=== PATIENT | female | born 1990 | race American Indian/Alaskan Native ===

== ENCOUNTER 2021-10-05 17:32 | Emergency (ER) | payer BC, MEDICAID, OTHER ==
[~2021-10-05] VITALS: Ht 170.2 cm; Wt 90.9 kg
[~2021-10-05 17:32] MED LIST: DIAZ5TAB PO; NO HOME MEDS
[2021-10-05 18:03] VITALS: BP 119/85
[2021-10-05] MEDS ORDERED: diazepam inj 5 MG/ML inj. IM ONE (18:35)
== END 2021-10-05 21:11 | disposition home or self-care (01) ==
LOC: ER 17:33
DX: M54.50 Low back pain, unspecified (principal); R53.1 Weakness; R20.0 Anesthesia of skin; G89.29 Other chronic pain; Z56.0 Unemployment, unspecified; Z88.8 Allergy status to other drugs, medicaments and biological substances; Z79.899 Other long term (current) drug therapy
CPT/HCPCS: 72148; 96372; 99284; J3360; 99283

== ENCOUNTER 2024-05-22 01:20 | Inpatient (IN) | payer BC, OTHER ==
[2024-05-22] VITALS (16 sets, daily range): BP systolic 125–138; BP diastolic 74–92; PULSE 51–82; RESP 12–16; TEMP 97–97.8; O2SAT 93–100
[~2024-05-22] VITALS: Ht 170.2 cm; Wt 68.0 kg
[2024-05-22] MEDS: acetaminophen 1,000mg/100ml IV 100 ML IV ONE ×2 (02:34→22:16)
[2024-05-22] MEDS: normal saline 1000ML IV soln IVB ONE (02:34)
[2024-05-22] MEDS: ketorolac trometh. 30mg/ml inj. IV ONE (02:34)
[2024-05-22] MEDS: ondansetron/PF 4mg/2ml inj IV ONE (02:34)
[2024-05-22 03:18] LABS: BASOPHILS % (AUTO) 0.4 % (0-1); EOSINOPHILS # (AUTO) 0.1 X10'3 (0-0.9); EOSINOPHILS % (AUTO) 1.1 % (0-6); HEMATOCRIT 35.8 % (35.0-45.0); LYMPHOCYTES # (AUTO) 1.7 X10'3 (1.1-4.8); LYMPHOCYTES % (AUTO) 16.1 % (21-51); MEAN CORPUSCULAR HEMOGLOBIN 33.5 PG (27.0-31.0); MEAN CORPUSCULAR HGB CONC 33.6 g/dL (33.0-36.5); MEAN CORPUSCULAR VOLUME 99.6 FL (78-98); MEAN PLATELET VOLUME 8.4 FL (7.4-10.4); MONOCYTES # (AUTO) 0.5 X10'3 (0-0.9); MONOCYTES % (AUTO) 4.8 % (2-12); NEUTROPHILS # (AUTO) 8.3 X10'3 (1.8-7.7); NEUTROPHILS % (AUTO) 77.6 % (42-75); PLATELET COUNT 176 X10'3 (140-440); RED BLOOD COUNT 3.59 X10'6 (4.20-5.60); RED CELL DISTRIBUTION WIDTH 13.1 % (11.5-14.5); WHITE BLOOD COUNT 10.7 X10'3 (4.5-11.0)
[2024-05-22 03:29] LABS: ALANINE AMINOTRANSFERASE 30 U/L (12-78); ALBUMIN 3.5 G/DL (3.4-5.0); ALBUMIN/GLOBULIN RATIO 1.1 (1.1-1.5); ALKALINE PHOSPHATASE 60 IU/L (46-116); ANION GAP 11 (8-16); ASPARTATE AMINO TRANSFERASE 22 U/L (10-37); BILIRUBIN,TOTAL 0.6 MG/DL (0.1-1.0); BLOOD UREA NITROGEN 11 MG/DL (7-18); BUN/CREATININE RATIO 14.7 (10.0-20.0); CALCIUM 8.4 MG/DL (8.5-10.1); CHLORIDE 103 MMOL/L (99-107); CREATININE 0.75 MG/DL (0.40-0.90); GLUCOSE 117 MG/DL (70-104); LIPASE 24 U/L (16-77); POTASSIUM 3.5 MMOL/L (3.5-5.1); SODIUM 135 MMOL/L (135-145); TOTAL CARBON DIOXIDE 21.2 MMOL/L (24-32); TOTAL PROTEIN 6.8 G/DL (6.4-8.2); eCRCL 104 ML/MIN; eGFR 89 ML/MIN
[2024-05-22 03:58] LABS: BILIRUBIN,URINE NEGATIVE (Neg); CLARITY,URINE CLOUDY (Clear); COLOR,URINE YELLOW (Yellow); GLUCOSE, URINE NEGATIVE (Neg); KETONES,URINE TRACE mg/dl (Neg); LEUKOCYTE ESTERASE ,URINE NEGATIVE (Neg); NITRITES, URINE NEGATIVE (Neg); OCCULT BLOOD,URINE NEGATIVE (Neg); PROTEIN,URINE NEGATIVE (Neg); UROBILINOGEN,URINE 0.2 E.U/dL (0.2-1.0)
[2024-05-22 04:06] LABS: UA COLLECTION TYPE CLN CATCH MIDSTREAM
[2024-05-22 04:08] LABS: BACTERIA,URINE 1+ /HPF (Neg); MUCUS STRANDS FEW /LPF (Neg); RBC,URINE 0-2 /HPF (0-2); SQUAMOUS EPITHELIAL CELL,UR FEW /LPF (FEW); WBC,URINE NONE SEEN /HPF (0-4)
[2024-05-22 04:09] LABS: AMORPHOUS PHOSPHATES 4+
[2024-05-22] MEDS: piperacillin/tazo 3.375gm/50ml 50 ML IV ONE (06:39)
[2024-05-22] MEDS: HYDROcodone/acetaminophen 5mg/325mg tablet PO ONE (06:39)
[2024-05-22] MEDS ORDERED: VENL75CA61 PO (06:55)
[2024-05-22] MEDS ORDERED: magnesium hydroxide 30ml (MOM) UD suspension PO PRN ×2 (07:50→08:10)
[2024-05-22] MEDS ORDERED: HYDROcodone/acetaminophen 5mg/325mg tablet PO PRN ×2 (07:50→21:30)
[2024-05-22] MEDS ORDERED: acetaminophen 325mg tablet PO PRN ×3 (07:50→08:10)
[2024-05-22] MEDS ORDERED: HYDROcodone/acetaminophen 10/325mg tab PO PRN (07:50)
[2024-05-22] MEDS ORDERED: mag hydrox/Alum hydrox/simeth 30ml oral suspension PO PRN ×2 (07:50→08:10)
[2024-05-22] MEDS ORDERED: morphine 2 MG/ML inj. syringe IV PRN ×3 (07:50→08:10)
[2024-05-22] MEDS: docusate sod 100mg capsule PO SCH ×2 (08:00→23:29)
[2024-05-22] MEDS ORDERED: potassium Cl 40MEQ/1/2NS 520ml 520 ML IV PRN (08:10)
[2024-05-22] MEDS ORDERED: magnesium sulf-water 2g/50mL 50 ML IV PRN (08:10)
[2024-05-22] MEDS ORDERED: magnesium sulf-water 4G/100mL 100 ML IV PRN (08:10)
[2024-05-22] MEDS ORDERED: potassium Cl 20 mEq SR tablet PO PRN ×2 (08:10)
[2024-05-22] MEDS ORDERED: magnesium Cl slow-release 64mg tablet PO PRN (08:10)
[2024-05-22] MEDS: dextrose 5%-1/2 normal saline 1,000 ML IV SCH (08:10)
[2024-05-22 08:33] LABS: MAGNESIUM 1.9 MG/DL (1.5-2.4)
[2024-05-22] MEDS: normal saline 1000ml 1,000 ML IV SCH (10:42)
[2024-05-22] MEDS: ondansetron/PF 4mg/2ml inj IV PRN (10:43)
[2024-05-22] MEDS: morphine 2 MG/ML inj. syringe IV PRN ×3 (10:44→21:57)
[2024-05-22] MEDS ORDERED: morphine 4 MG/ML inj SYRINge IV PRN ×2 (13:25→19:40)
[2024-05-22] MEDS ORDERED: iohexol 300mg/ml 100ml inj. ONE (14:02)
[2024-05-22] MEDS: ondansetron/PF 4mg/2ml inj IV SCH (16:00)
[2024-05-22] MEDS: piperacillin/tazo 4.5gm/100ml 100 ML IV SCH (16:50)
[2024-05-22] MEDS ORDERED: meperidine/PF 25mg/ml syringe IV PRN ×3 (19:40)
[2024-05-22] MEDS ORDERED: proCHLORperazine 10 MG/2 ml inj IV PRN (19:40)
[2024-05-22] MEDS ORDERED: ondansetron/PF 4mg/2ml inj IV PRN ×2 (19:40→21:30)
[2024-05-22] MEDS ORDERED: ringers solution, lacted 1,000 ML IV SCH (19:40)
[2024-05-22] MEDS ORDERED: BUPIVAcaine 2.5mg/ml inj 50ml vial (contains preservative) ONE (19:58)
[2024-05-22] MEDS: heparin, porcine 5000 units/ml vial SQ SCH (20:00)
[2024-05-22] MEDS: K and/or MAG REPLACEMENT MC SCH (20:00)
[2024-05-22] MEDS ORDERED: sevoflurane 250ml liquid IH ONE (20:01)
[2024-05-22] MEDS ORDERED: midazolam 1 mg/ML 2ml injection ONE (20:04)
[2024-05-22] MEDS ORDERED: fentaNYL /PF 50mcg/ml 5ml ampule ONE (20:05)
[2024-05-22] MEDS ORDERED: rocuronium 10mg/ml inj IV ONE (20:05)
[2024-05-22] MEDS ORDERED: propofol inj 20 ML IV ONE (20:05)
[2024-05-22] MEDS ORDERED: ceFAZolin 1000mg inj ONE ×2 (20:18)
[2024-05-22] MEDS: diatr meglu/diatrizoate 30ml oral sol.-(3 dose) bottle PO SCH (21:00)
[2024-05-22] MEDS ORDERED: ondansetron/PF 4mg/2ml inj ONE (21:14)
[2024-05-22] MEDS ORDERED: dexamethasone sod phosphate 4mg/ml inj. ONE (21:14)
[2024-05-22] MEDS ORDERED: glycopyrrolate 0.2mg/ml inj ONE (21:16)
[2024-05-22] MEDS ORDERED: neostigmine methylsulfate 1 MG/ML 10ml vial ONE (21:16)
[2024-05-22] MEDS: BUPIVAcaine/PF 2.5 mg/ml (0.25%) 30ml vial IJ ONE (21:20)
[2024-05-22] MEDS ORDERED: naloxone 0.4 mg/ml inj IV PRN (21:30)
[2024-05-22] MEDS: HYDROcodone/acetaminophen 5mg/325mg tablet PO PRN (23:30)
[2024-05-23] VITALS (7 sets, daily range): BP systolic 116–131; BP diastolic 76–83; PULSE 70–80; RESP 13–16; TEMP 96.8–98.1; O2SAT 93–96
[2024-05-23 07:44] LABS: BASOPHILS % (AUTO) 0.2 % (0-1); EOSINOPHILS % (AUTO) 0 % (0-6); HEMATOCRIT 35.7 % (35.0-45.0); HEMOGLOBIN 12.1 g/dl (12.0-16.0); LYMPHOCYTES # (AUTO) 0.9 X10'3 (1.1-4.8); LYMPHOCYTES % (AUTO) 8.7 % (21-51); MEAN CORPUSCULAR HEMOGLOBIN 33.8 PG (27.0-31.0); MEAN CORPUSCULAR HGB CONC 33.8 g/dL (33.0-36.5); MEAN CORPUSCULAR VOLUME 99.9 FL (78-98); MEAN PLATELET VOLUME 8.5 FL (7.4-10.4); MONOCYTES # (AUTO) 0.3 X10'3 (0-0.9); MONOCYTES % (AUTO) 3.3 % (2-12); NEUTROPHILS # (AUTO) 9.1 X10'3 (1.8-7.7); NEUTROPHILS % (AUTO) 87.8 % (42-75); PLATELET COUNT 196 X10'3 (140-440); RED BLOOD COUNT 3.58 X10'6 (4.20-5.60); RED CELL DISTRIBUTION WIDTH 13.1 % (11.5-14.5); WHITE BLOOD COUNT 10.3 X10'3 (4.5-11.0)
[2024-05-23 07:56] LABS: ALANINE AMINOTRANSFERASE 71 U/L (12-78); ALBUMIN 3.3 G/DL (3.4-5.0); ALKALINE PHOSPHATASE 57 IU/L (46-116); ANION GAP 7 (8-16); ASPARTATE AMINO TRANSFERASE 55 U/L (10-37); BLOOD UREA NITROGEN 7 MG/DL (7-18); BUN/CREATININE RATIO 9.3 (10.0-20.0); CALCIUM 8.7 MG/DL (8.5-10.1); CHLORIDE 105 MMOL/L (99-107); CHOLESTEROL 160 MG/DL (0-200); CREATININE 0.75 MG/DL (0.40-0.90); GLUCOSE 131 MG/DL (70-104); HDL CHOLESTEROL 54 MG/DL (35-60); MAGNESIUM 1.8 MG/DL (1.5-2.4); POTASSIUM 4.4 MMOL/L (3.5-5.1); SODIUM 138 MMOL/L (135-145); TOTAL CARBON DIOXIDE 26.3 MMOL/L (24-32); TOTAL PROTEIN 6.7 G/DL (6.4-8.2); TRIGLYCERIDES 31 MG/DL (20-135); eCRCL 104 ML/MIN; eGFR 89 ML/MIN
[2024-05-23 08:10] LABS: LDL CHOLESTEROL 98 MG/DL (50-100)
[2024-05-23] MEDS: HYDROcodone/acetaminophen 10/325mg tab PO PRN (09:14)
[2024-05-23] MEDS ORDERED: HYDR-3965 PO (15:11)
[2024-05-24 06:00] LABS: HBSAG SCREEN Negative (Negative); HEP B CORE AB, IGM Negative (Negative); HEP B CORE AB, TOT Negative (Negative)
== END 2024-05-23 16:05 | disposition home or self-care (01) | DRG 419 ==
LOC: ER 01:20 → ED HOLD 07:51 → ORTHO 4S 09:56
PROVIDERS: ADMIT Internal Medicine; ATTEND Internal Medicine
PROC: 8E0W4CZ Robotic Assisted Procedure of Trunk Region, Percutaneous Endoscopic Approach (ICD-10-PCS; 2024-05-22)
PROC: 0FT44ZZ Resection of Gallbladder, Percutaneous Endoscopic Approach (ICD-10-PCS; principal; 2024-05-22 20:01)
DX: K80.00 Calculus of gallbladder with acute cholecystitis without obstruction (principal); K82.8 Other specified diseases of gallbladder; F32.A Depression, unspecified; G89.29 Other chronic pain; F41.9 Anxiety disorder, unspecified; F45.21 Hypochondriasis; E78.5 Hyperlipidemia, unspecified; Z72.0 Tobacco use; Z87.11 Personal history of peptic ulcer disease; Z90.710 Acquired absence of both cervix and uterus; Z56.0 Unemployment, unspecified; Z88.8 Allergy status to other drugs, medicaments and biological substances; Z87.440 Personal history of urinary (tract) infections
CPT/HCPCS: 96365; 96367; 99285; Z7506; Z7508; 36415; 74177; 76700; 80053; 80061; 81001; 83690; 83735; 85025; 86704; 86705; 87081; 87340; A4215; A4618; A6258; A6449; A7000; G0378; J0131; J0690; J1100; J1644; J1885; J2250; J2270; J2405; J2543; J2704; J2710; J3010; J3490; J7030; J7120; Q9967

== ENCOUNTER 2024-09-03 11:25 | Emergency (ER) | payer MEDICAID, OTHER ==
[~2024-09-03] VITALS: Ht 167.6 cm; Wt 81.8 kg
[~2024-09-03 11:25] MED LIST changes: -DIAZ5TAB PO; +HYDR-3965 PO; +VENL75CA61 PO
[2024-09-03 12:17] LABS: BASOPHILS # (AUTO) 0.1 X10'3 (0-0.2); BASOPHILS % (AUTO) 0.6 % (0-1); EOSINOPHILS # (AUTO) 0.3 X10'3 (0-0.9); EOSINOPHILS % (AUTO) 2.8 % (0-6); HEMATOCRIT 40.6 % (35.0-45.0); HEMOGLOBIN 13.4 g/dl (12.0-16.0); MEAN CORPUSCULAR VOLUME 99.9 FL (78-98); MEAN PLATELET VOLUME 8.1 FL (7.4-10.4); MONOCYTES # (AUTO) 0.5 X10'3 (0-0.9); MONOCYTES % (AUTO) 5.2 % (2-12); NEUTROPHILS # (AUTO) 7.1 X10'3 (1.8-7.7); NEUTROPHILS % (AUTO) 71.4 % (42-75); PLATELET COUNT 201 X10'3 (140-440); RED BLOOD COUNT 4.06 X10'6 (4.20-5.60); RED CELL DISTRIBUTION WIDTH 13.8 % (11.5-14.5)
[2024-09-03 12:36] LABS: ALANINE AMINOTRANSFERASE 16 U/L (12-78); ALBUMIN 3.8 G/DL (3.4-5.0); ALBUMIN/GLOBULIN RATIO 1.1 (1.1-1.5); ALKALINE PHOSPHATASE 63 IU/L (46-116); ANION GAP 6 (8-16); ASPARTATE AMINO TRANSFERASE 18 U/L (10-37); BILIRUBIN,TOTAL 0.6 MG/DL (0.1-1.0); BLOOD UREA NITROGEN 9 MG/DL (7-18); BUN/CREATININE RATIO 11.5 (10.0-20.0); CALCIUM 8.6 MG/DL (8.5-10.1); CHLORIDE 105 MMOL/L (99-107); CREATININE 0.78 MG/DL (0.40-0.90); ETHANOL < 10 MG/DL (<10); GLUCOSE 86 MG/DL (70-104); POTASSIUM 3.8 MMOL/L (3.5-5.1); SODIUM 138 MMOL/L (135-145); TOTAL CARBON DIOXIDE 27.4 MMOL/L (24-32); TOTAL PROTEIN 7.2 G/DL (6.4-8.2); eCRCL 95 ML/MIN; eGFR 85 ML/MIN
[2024-09-03 12:43] LABS: ACETAMINOPHEN < 2.0 UG/ML (10-30)
[2024-09-03 12:46] LABS: LITHIUM < 0.2 MMOL/L (0.8-1.2)
[2024-09-03 13:27] LABS: BILIRUBIN,URINE NEGATIVE (Neg); CLARITY,URINE SLIGHTLY CLOUDY (Clear); COLOR,URINE YELLOW (Yellow); GLUCOSE, URINE NEGATIVE (Neg); KETONES,URINE NEGATIVE (Neg); LEUKOCYTE ESTERASE ,URINE NEGATIVE (Neg); NITRITES, URINE NEGATIVE (Neg); OCCULT BLOOD,URINE NEGATIVE (Neg); PH,URINE 6.5 (4.8-8.0); PROTEIN,URINE NEGATIVE (Neg); UROBILINOGEN,URINE 0.2 E.U/dL (0.2-1.0)
[2024-09-03 13:32] LABS: UA COLLECTION TYPE CLN CATCH MIDSTREAM; URINE HCG NEGATIVE (NEG)
[2024-09-03 13:35] LABS: SQUAMOUS EPITHELIAL CELL,UR MANY /LPF (FEW)
[2024-09-03 13:36] LABS: BACTERIA,URINE 3+ /HPF (Neg); WBC,URINE 0-4 /HPF (0-4)
[2024-09-03 13:45] LABS: URINE AMPHETAMINE SCREEN NEGATIVE (Neg); URINE BARBITUATE SCREEN NEGATIVE (Neg); URINE BENZODIAZEPINES SCREEN NEGATIVE (Neg); URINE CANNABINOID SCREEN NEGATIVE (Neg); URINE COCAINE SCREEN NEGATIVE (Neg); URINE METHADONE SCREEN NEGATIVE (Neg); URINE OPIATE SCREEN NEGATIVE (Neg); URINE PHENCYCLIDINE SCREEN NEGATIVE (Neg)
[2024-09-03 19:24] VITALS: BP 130/88; PULSE 99; RESP 18; TEMP 98.6; O2SAT 99
== END 2024-09-03 19:44 | disposition home or self-care (01) ==
LOC: ER 11:25
DX: T43.592A Poisoning by other antipsychotics and neuroleptics, intentional self-harm, initial encounter (principal); Z20.822 Contact with and (suspected) exposure to COVID-19; T43.212A Poisoning by selective serotonin and norepinephrine reuptake inhibitors, intentional self-harm, initial encounter; T45.0X2A Poisoning by antiallergic and antiemetic drugs, intentional self-harm, initial encounter; G89.29 Other chronic pain; R45.851 Suicidal ideations; F32.A Depression, unspecified; F41.9 Anxiety disorder, unspecified; F17.210 Nicotine dependence, cigarettes, uncomplicated; Z88.5 Allergy status to narcotic agent; Z79.899 Other long term (current) drug therapy; Y92.89 Other specified places as the place of occurrence of the external cause
CPT/HCPCS: 36415; 80053; 80178; 80305; 80320; 80329; 81001; 81025; 85025; 87811; 93005; 99285